=== PATIENT | male | born 1955 | race Caucasian/White ===

== ENCOUNTER → 2021-04-21 | Day surgery (SDC) | payer MEDICARE ==
[~2021-04-21] MED LIST: IPRATRPIUM/ALBUTEROL 0.5/2.5MG 3 ML NEBU. NEB PRN; IV RINGERS SOLUTION,LACTATED 1,000 ML IV SCH; LIDOCAINE 2% PF 5 ML VIAL. ONE; MIDAZOLAM HCL PF 2 MG/2 ML VIAL. IV ONE; ONDANSETRON PF 4 MG/2 ML VIAL. IV PRN; PROPOFOL 10,000 MCG/ML (20ML) VIAL IV ONE; lipitor PO
[2021-04-21 11:57] VITALS: BP 129/85
--- NOTE | 2021-04-23 12:08 | PATHOLOGY ---
[facility] Accession Number: [id number] . 01 Material submitted: . PART A: hepatic flexure - HEPATIC FLEXURE POLYP HOT SNARE PART B: rectum - RECTAL POLYP HOT SNARE . 01 Clinical history: . COLONOSCOPY SCREENING . 02 Diagnosis: A. Colon biopsy, hepatic flexure polyp: - Sessile serrated polyp/adenoma. . B. Colorectal biopsy, rectal polyp: - Tubular adenoma. . ([facility]:mm; 04/23/2021) [facility] 04/23/2021 0947 Local . 02 Comment: There is no high grade dysplasia or evidence of malignancy. . ([facility]:mml; 04/23/2021) . 02 Electronically signed: . Tay Lal MD, Pathologist NPI- [id number] . 01 Gross description: . A. Received in formalin labeled "Janmann, Delmar, hepatic flexure hot snare" are 2 fragments of riddle-brown soft tissue measuring 0.7 x 0.4 x 0.3 cm and 0.4 x 0.3 x 0.3 cm. The specimen is submitted entirely in A1. . B. Received in formalin labeled "Brettmann, Delmar rectal polyp hot snare" is a fragment of riddle-brown soft tissue measuring 0.9 x 0.5 x 0.4 cm. The surgical resection margin is inked black. The specimen is submitted entirely in B1. ([facility]; 04/22/2021) GZA/GZA 04/22/2021 1707 Local . 02 Pathologist provided ICD-10: D12.3, D12.8 . 02 CPT . 015493, 549648 Specimen Comment: A courtesy copy of this report has been sent to [phone], [phone] Specimen Comment: [phone] Specimen Comment: Report sent to / DR ALCARAZ Performed at: [address] [id number] MD Juan José Acosta MD Phone: [phone] Performed at: 02 [facility] [address], [place] [id number] MD Tay Lal MD Phone: [phone]
== END | disposition home or self-care (01) ==
LOC: SURG 10:08
PROVIDERS: ATTEND Internal Medicine Gastroenterology
DX: Z12.11 Encounter for screening for malignant neoplasm of colon (principal); D12.3 Benign neoplasm of transverse colon; D12.8 Benign neoplasm of rectum; I25.2 Old myocardial infarction; Z79.899 Other long term (current) drug therapy; E78.00 Pure hypercholesterolemia, unspecified; Z72.89 Other problems related to lifestyle
CPT/HCPCS: 45385; 88305; J2001; J2704; J7120